=== PATIENT | male | born 1980 | race Caucasian/White ===

== ENCOUNTER 2018-07-06 20:01 | Inpatient (IN) | payer OTHER ==
[2018-07-06 20:16] VITALS: BMI 28.3
--- NOTE | 2018-07-06 21:01 | HP ---
COWS - Scale Resting Pulse: 1= [place] 81-100 Sweatin=Flushed/Facial Moisture (Increased facial moisture) Restless Observation: 3= Extraneous Movement Pupil Size: 2= Moderately Dilated (Pupils = 4 mm) Bone or Joint Aches: 0= None Runny Nose/ Eye Tearin= Nasal Congestion GI Upset > 30mins: 3= Vomiting/Diarrhea Tremor Observation: 2= Slight Tremor Visible Yawning Observation: 1= 1-2x During Session Anxiety or Irritability: 2=Irritable/Anxious Goose Flesh Skin: 0=Smooth Skin COWS Score: 17 CIWA Score - Admission Criteria [facility] Guidelines: Admission for Medically Managed Detox: Requires at least one of the followin. CIWA greater than 12 2. Seizures within the past 24 hours 3. Delirium tremens within the past 24 hours 4. Hallucinations within the past 24 hours 5. Acute intervention needed for co occurring medical disorder 6. Acute intervention needed for co occurring psychiatric disorder 7. Severe withdrawal that cannot be handled at a lower level of care (continued vomiting, continued diarrhea, abnormal vital signs) requiring intravenous medication and/or fluids 8. Admission ROS [facility] Chief Complaint: Having heroin withdrawal. Allergies/Adverse Reactions: Allergies Allergy/AdvReac Type Severity Reaction Status Date / Time Fish Containing Products Allergy Verified 07/06/18 20:10 History of Present Illness: First admission for this 37 yom w/ heroin use disorder, having withdrawal symptoms. Patient states is taking prescribed oxycodone for prescribed chronic back pain x 2 years. States wants to stop everything - including oxy. has attempted several times to stop on own but only able to maintain sobriety for 1 day. Heroin use began at age 28. Current use x 2 years. (nasal) Cocaine use began at age 14. Daily $40 (nasal) Alcohol use began at age 14. 2 - 22 oz beers two-three x/wk Prescribed oxycodone x 2 years Nicotine use since abge 14. Smokes 1PPD. Last prescribed Valium May 2018. [place] Xanax or Klonopin. Denies seizures, blackouts, overdoses. Has a Narcan kit at home. PMHx: Chronic LBP; denies other significant PMH MHHx; Anxiety. Denies thoughts of harming self or others. Patient Name: Jayme Sinha Date: 1980 Address: [address] [place] [address] [place] [address] Sex: Male Rx Written Rx Dispensed Drug Quantity Days Supply Prescriber Name 06/08/2018 06/10/2018 oxycodone hcl 30 mg tablet 120 30 Kelvin May Patient Name: Jayme Sinha Date: 1980 Address: [address] [place] [address] Sex: Male Rx Written Rx Dispensed Drug Quantity Days Supply Prescriber Name 05/10/2018 05/10/2018 oxycodone hcl 30 mg tablet 120 30 KarKelvin long 05/10/2018 05/10/2018 diazepam 2 mg tablet 60 30 KaretKelvin stephens 04/08/2018 04/12/2018 diazepam 2 mg tablet 60 30 Kelvin May 04/08/2018 04/12/2018 oxycodone hcl 30 mg tablet 120 30 KaretKelvin stephens 04/08/2018 04/09/2018 oxycodone hcl 30 mg tablet 20 5 Kelvin May 03/11/2018 03/11/2018 diazepam 2 mg tablet 60 30 KarKelvin long 03/11/2018 03/11/2018 oxycodone hcl 30 mg tablet 120 30 KaretKelvin stephens 02/11/2018 02/12/2018 oxycodone hcl 30 mg tablet 120 30 KarKelvin long 02/11/2018 02/12/2018 diazepam 5 mg tablet 30 15 Kelvin May 01/14/2018 01/14/2018 oxycodone hcl 30 mg tablet 120 30 Kelvin May 01/14/2018 01/14/2018 diazepam 5 mg tablet 30 30 Kelvin May 12/17/2017 12/18/2017 oxycodone hcl 30 mg tablet 120 30 KarKelvin long 11/18/2017 11/18/2017 oxycodone hcl 30 mg tablet 120 30 Kelvin May 10/20/2017 10/20/2017 diazepam 5 mg tablet 30 30 Kelvin May 10/20/2017 10/20/2017 oxycodone hcl 30 mg tablet 120 30 KarKelvin long 09/21/2017 09/21/2017 oxycodone hcl 30 mg tablet 120 30 Mario Rodriguez MD 09/21/2017 09/21/2017 diazepam 5 mg tablet 45 30 Mario Rodriguez MD 08/24/2017 08/24/2017 oxycodone hcl 30 mg tablet 120 30 Lalo Kelvin D 08/24/2017 08/24/2017 diazepam 5 mg tablet 45 30 Kelvin May D 07/27/2017 07/27/2017 oxycodone hcl 30 mg tablet 120 30 Marcusetangelo, Kelvin D 07/27/2017 07/27/2017 diazepam 5 mg tablet 45 30 Marcusetangelo, Kelvin D Search Terms: Jayme Sinha, 1980 Search Date: 07/06/2018 08:59:09 PM States Searched: [place], [place], [place], [place], [place], [place], [place] The Drug Utilization Report below displays the controlled substance prescriptions, if any, that were dispensed in the indicated state(s). The information displayed on this report is compiled from requests submitted to other states' PMPs, and accurately reflects the information as returned by them. Blank geiger indicate data not provided by other state. This report was requested by: Mabel Butler | Reference #: [id number] Exam Limitations: No Limitations - Ebola screening Have you traveled outside of the country in the last 21 days: No (N) Have you had contact with anyone from an Ebola affected area: No Have you been sick,other than usual withdrawal symptoms: No (Denies recent measles exposure) Do you have a fever: No - Review of Systems Constitutional: Chills, Diaphoresis EENT: reports: Nose Congestion, Dental Problems (Tooth pain.) Respiratory: reports: SOB with Exertion (Walking) Cardiac: reports: No Symptoms Reported GI: reports: Diarrhea (watery, greenish-brown x 2 hours.), Nausea, Vomiting : reports: No Symptoms Reported Musculoskeletal: reports: Back Pain (Chronic intermittent sharp back pain - "8.5 " Increases w/ twisting. Improves w/ rest) Integumentary: reports: No Symptoms Reported Neuro: reports: Numbness (In lower back, (L) arm, and (L) leg), Tremors Endocrine: reports: Increased Thirst Hematology: reports: No Symptoms Reported Psychiatric: reports: Judgement Intact, Orientated x3, Agitated, Anxious Patient History - PPD History Previous Implant?: No Documented Results: Negative w/o proof Implanted On Prior [facility] Admission?: No PPD to be Administered?: Yes - Smoking Cessation Smoking history: Current every day smoker Have you smoked in the past 12 months: Yes Aproximately how many cigarettes per day: 20 Hx Chewing Tobacco Use: No Initiated information on smoking cessation: Yes 'Breaking Loose' booklet given: 07/06/18 - Substance & Tx. History Hx Alcohol Use: Yes Hx Substance Use: Yes Substance Use Type: Alcohol, Cocaine, Heroin, Prescribed (Oxycodone) Hx Substance Use Treatment: No - Substances abused Heroin Substance route: Inhalation Frequency: Daily Amount used: 10bags/day Age of first use: 28 Date of last use: 07/06/18 Admission Physical Exam [facility] - Physical General Appearance: Yes: Moderate Distress, Tremorous, Irritable, Sweating ( Increased facial moisture), Anxious HEENTM: Yes: EOMI, Hearing grossly Normal, Normocephalic, Normal Voice, CEASAR ( Pupils = 4 mm), Pharynx Normal Respiratory: Yes: Lungs Clear, Normal Breath Sounds, No Respiratory Distress Neck: Yes: No masses,lesions,Nodules, Supple Breast: Yes: Breast Exam Deferred Cardiology: Yes: Regular Rhythm, S1, S2, Bradycardia Abdominal: Yes: Non Tender, Soft, Increased Bowel Sounds Genitourinary: Yes: Within Normal Limits Back: Yes: Normal Inspection Musculoskeletal: Yes: full range of Motion, Gait Steady Extremities: Yes: Normal Capillary Refill, Normal Inspection, Normal Range of Motion, Non-Tender, Tremors (Slight tremors visible) Neurological: Yes: energy management specialist II-XII NML intact, Fully Oriented, Alert, Motor Strength 5/5, Normal Mood/Affect Integumentary: Yes: Normal Color, Warm, Diaphoresis (Increased facial moisture) Lymphatic: Yes: Within Normal Limits - Diagnostic (1) Opioid dependence with withdrawal Current Visit: Yes Status: Acute (2) Cocaine dependence, uncomplicated Current Visit: Yes Status: Chronic (3) Nicotine dependence, uncomplicated Current Visit: Yes Status: Chronic Qualifiers: Nicotine product type: cigarettes Qualified Code(s): F17.210 - Nicotine dependence, cigarettes, uncomplicated (4) History of low back pain Current Visit: Yes Status: Chronic (5) Abnormal finding on EKG Current Visit: Yes Status: Suspected Comment: No prior EKG for comparison. Cleared for Admission [facility] - Detox or Rehab [facility] Level of Care: Medically Managed Detox Regimen/Protocol: Methadone Claeared for Rehab Admission: No Breathalyzer - Breathalyzer Breathalyzer: 0 Inpatient Rehab Admission - Rehab Decision to Admit Inpatient rehab admission?: No
[2018-07-06] MEDS ORDERED: MAG HYDROX/AL HYDROX/SIMETH 30 ML UNIT-DOSE CUP PO PRN (21:27)
[2018-07-06] MEDS ORDERED: PROCHLORPERAZINE MALEATE 5 MG TABLET PO PRN (21:27)
[2018-07-06] MEDS ORDERED: MAGNESIUM HYDROX 2400MG/30ML ORAL SUSPENSION 30 ML CUP PO PRN (21:27)
[2018-07-06] MEDS ORDERED: MENTHOL/PHENOL 1 EACH UD MM PRN (21:27)
[2018-07-06] MEDS ORDERED: IBUPROFEN 400 MG TABLET (FP) PO PRN (21:27)
[2018-07-06] MEDS ORDERED: METHADONE HCL 10 MG TABLET (FOR DETOX USE ONLY) PO ONE ×2 (21:27→23:00)
[2018-07-06] MEDS ORDERED: NICOTINE POLACRILEX 2 MG GUM BUC PRN (21:27)
[2018-07-06] MEDS ORDERED: MAGNESIUM CITRATE 300 ML BOTTLE PO PRN (21:27)
[2018-07-06] MEDS ORDERED: ACETAMINOPHEN 325 MG TABLET (FP) PO PRN ×2 (21:27)
[2018-07-06] MEDS: THIAMINE HCL 100 MG TABLET (FP) PO SCH (22:35)
[2018-07-06] MEDS: MELATONIN 5 MG TABLETS PO PRN (22:38)
[2018-07-06] MEDS: METHOCARBAMOL 500 MG TABLET PO PRN (22:38)
[2018-07-06 23:57] LABS: PH,URINE 5.5 (5.0-8.0); URINE APPEARANCE TURBID; URINE BILIRUBIN NEGATIVE (NEGATIVE); URINE COLOR YELLOW; URINE GLUCOSE (UA) NEGATIVE (NEGATIVE); URINE KETONE NEGATIVE (NEGATIVE); URINE LEUK ESTERASE NEGATIVE (NEGATIVE); URINE NITRITE NEGATIVE (NEGATIVE); URINE PROTEIN NEGATIVE (NEGATIVE); URINE UROBILINOGEN 0.2 mg/dL (0.2-1.0)
[2018-07-07] MEDS: PRENATAL VITAMINS W/ FOLIC ACID TABLET (FP) PO SCH (09:55)
[2018-07-07] MEDS: METHOCARBAMOL 500 MG TABLET PO PRN ×2 (09:56→23:01)
[2018-07-07] MEDS: NICOTINE 21 MG/24 HOURS TOPICAL PATCH TD SCH (09:57)
[2018-07-07] MEDS ORDERED: METHADONE HCL 10 MG TABLET (FOR DETOX USE ONLY) PO ONE (10:00)
[2018-07-07 10:13] LABS: ALBUMIN 3.6 g/dl (3.4-5.0); BILIRUBIN,TOTAL 0.5 mg/dL (0.2-1); CREATININE 0.8 mg/dL (0.55-1.3); POTASSIUM 4.5 mmol/L (3.5-5.1); TOT PROT 6.9 g/dl (6.4-8.2)
--- NOTE | 2018-07-07 10:18 | PN ---
S COWS - Scale Resting Pulse: 0= [place] 80 or Below Sweatin= Chills/Flushing Restless Observation: 1= Difficult to Sit Still Pupil Size: 0= Normal to Room Light Bone or Joint Aches: 2= Severe Diffuse Aches Runny Nose/ Eye Tearin= Nasal Congestion GI Upset > 30mins: 1= Stomach Cramp Tremor Observation of Outstretched Hands: 2= Slight Tremor Visible Yawning Observation: 1= 1-2x During Session Anxiety or Irritability: 2=Irritable/Anxious Goose Flesh Skin: 3=Piloerection COWS Score: 14 BHS Progress Note (SOAP) Subjective: body aches indigestion abdominal cramping Objective: 07/07/18 10:17 Vital Signs Temperature 97.1 F L 07/07/18 09:13 Pulse Rate 64 07/07/18 09:13 Respiratory Rate 18 07/07/18 09:13 Blood Pressure 112/74 07/07/18 09:13 O2 Sat by Pulse Oximetry (%) Laboratory Last Values Sodium 140 mmol/L (136-145) 07/07/18 07:30 Potassium 4.5 mmol/L (3.5-5.1) 07/07/18 07:30 Chloride 106 mmol/L (98-107) 07/07/18 07:30 Carbon Dioxide 32 mmol/L (21-32) 07/07/18 07:30 Anion Gap 3 MMOL/L (8-16) L 07/07/18 07:30 BUN 12 mg/dL (7-18) 07/07/18 07:30 Creatinine 0.8 mg/dL (0.55-1.3) 07/07/18 07:30 Est GFR (CKD-EPI)AfAm 132.27 07/07/18 07:30 Est GFR (CKD-EPI)NonAf 114.12 07/07/18 07:30 Random Glucose 98 mg/dL (74-106) 07/07/18 07:30 Calcium 9.0 mg/dL (8.5-10.1) 07/07/18 07:30 Total Bilirubin 0.5 mg/dL (0.2-1) 07/07/18 07:30 AST 15 U/L (15-37) 07/07/18 07:30 ALT 18 U/L (13-61) 07/07/18 07:30 Alkaline Phosphatase 70 U/L (45-117) 07/07/18 07:30 Total Protein 6.9 g/dl (6.4-8.2) 07/07/18 07:30 Albumin 3.6 g/dl (3.4-5.0) 07/07/18 07:30 Urine Color Yellow 07/06/18 22:09 Urine Appearance Turbid 07/06/18 22:09 Urine pH 5.5 (5.0-8.0) 07/06/18 22:09 Ur Specific [place] 1.027 (1.010-1.035) 07/06/18 22:09 Urine Protein Negative (NEGATIVE) 07/06/18 22:09 Urine Glucose (UA) Negative (NEGATIVE) 07/06/18 22:09 Urine Ketones Negative (NEGATIVE) 07/06/18 22:09 Urine Blood Negative (NEGATIVE) 07/06/18 22:09 Urine Nitrite Negative (NEGATIVE) 07/06/18 22:09 Urine Bilirubin Negative (NEGATIVE) 07/06/18 22:09 Urine Urobilinogen 0.2 mg/dL (0.2-1.0) 07/06/18 22:09 Ur Leukocyte Esterase Negative (NEGATIVE) 07/06/18 22:09 lab noted Assessment: 07/07/18 10:17 withdrawal sx Plan: continue detox
[2018-07-07 10:27] LABS: HEMATOCRIT 40.4 % (35.4-49); HEMOGLOBIN 13.8 GM/dL (11.7-16.9); MCH 30.3 pg (25.7-33.7); MCHC 34.1 g/dl (32.0-35.9); MEAN CELL VOLUME 88.8 fl (80-96); MEAN PLT VOLUME 7.1 fl (7.5-11.1); PLATELET COUNT 261 K/MM3 (134-434); RBC 4.55 M/mm3 (4.00-5.60); RDW 13.6 % (11.9-15.9); WHITE BLOOD COUNT 7.1 K/mm3 (4.0-10.0)
[2018-07-07] MEDS ORDERED: DICYCLOMINE HCL 10 MG CAPSULE PO ONE (10:50)
[2018-07-07] MEDS: RANITIDINE HCL 150 MG TABLET (FP) PO SCH ×2 (11:02→23:01)
--- NOTE | 2018-07-07 12:56 | EKG ---
Test Reason : Blood Pressure : / mmHG Vent. Rate : 058 BPM Atrial Rate : 058 BPM P-R Int : 168 ms QRS Dur : 112 ms QT Int : 400 ms P-R-T Axes : 027 049 037 degrees QTc Int : 392 ms SINUS BRADYCARDIA WITH SINUS ARRHYTHMIA OTHERWISE NORMAL ECG NO PREVIOUS ECGS AVAILABLE Confirmed by ABRAHAM CHATTERJEE MD ([id number]) on 07/07/2018 12:56:13 PM Referred By: Confirmed By:ABRAHAM CHATTERJEE MD
[2018-07-07] MEDS: cloNIDine HCL 0.1 MG TABLET PO PRN (17:13)
[2018-07-07] MEDS: THIAMINE HCL 100 MG TABLET (FP) PO SCH (23:01)
[2018-07-07] MEDS: MELATONIN 5 MG TABLETS PO PRN (23:01)
[2018-07-08] MEDS: cloNIDine HCL 0.1 MG TABLET PO PRN (07:36)
[2018-07-08] MEDS ORDERED: METHADONE HCL 5 MG TABLET (FOR DETOX USE ONLY) PO ONE (10:00)
[2018-07-08] MEDS: NICOTINE 21 MG/24 HOURS TOPICAL PATCH TD SCH (10:08)
[2018-07-08] MEDS: PRENATAL VITAMINS W/ FOLIC ACID TABLET (FP) PO SCH (10:08)
[2018-07-08] MEDS: RANITIDINE HCL 150 MG TABLET (FP) PO SCH ×2 (10:08→22:17)
--- NOTE | 2018-07-08 10:47 | PN ---
BHS COWS - Scale Resting Pulse: 0= [place] 80 or Below Sweatin= Chills/Flushing Restless Observation: 3= Extraneous Movement Pupil Size: 1= Pupils >than Normal Bone or Joint Aches: 2= Severe Diffuse Aches Runny Nose/ Eye Tearin= Nasal Congestion GI Upset > 30mins: 2= Nausea/Diarrhea Tremor Observation of Outstretched Hands: 2= Slight Tremor Visible Yawning Observation: 1= 1-2x During Session Anxiety or Irritability: 2=Irritable/Anxious Goose Flesh Skin: 0=Smooth Skin COWS Score: 15 BHS Progress Note (SOAP) Subjective: alert,irritable,anxious,interrupted sleep,pain in the body and back Objective: 07/08/18 10:45 Vital Signs Temperature 97.5 F L 07/08/18 10:25 Pulse Rate 69 07/08/18 10:25 Respiratory Rate 16 07/08/18 10:25 Blood Pressure 117/64 07/08/18 10:25 O2 Sat by Pulse Oximetry (%) 07/08/18 10:46 Laboratory Last Values WBC 7.1 K/mm3 (4.0-10.0) 07/07/18 07:30 RBC 4.55 M/mm3 (4.00-5.60) 07/07/18 07:30 Hgb 13.8 GM/dL (11.7-16.9) 07/07/18 07:30 Hct 40.4 % (35.4-49) 07/07/18 07:30 MCV 88.8 fl (80-96) 07/07/18 07:30 MCH 30.3 pg (25.7-33.7) 07/07/18 07:30 MCHC 34.1 g/dl (32.0-35.9) 07/07/18 07:30 RDW 13.6 % (11.9-15.9) 07/07/18 07:30 Plt Count 261 K/MM3 (134-434) 07/07/18 07:30 MPV 7.1 fl (7.5-11.1) L 07/07/18 07:30 Sodium 140 mmol/L (136-145) 07/07/18 07:30 Potassium 4.5 mmol/L (3.5-5.1) 07/07/18 07:30 Chloride 106 mmol/L (98-107) 07/07/18 07:30 Carbon Dioxide 32 mmol/L (21-32) 07/07/18 07:30 Anion Gap 3 MMOL/L (8-16) L 07/07/18 07:30 BUN 12 mg/dL (7-18) 07/07/18 07:30 Creatinine 0.8 mg/dL (0.55-1.3) 07/07/18 07:30 Est GFR (CKD-EPI)AfAm 132.27 07/07/18 07:30 Est GFR (CKD-EPI)NonAf 114.12 07/07/18 07:30 Random Glucose 98 mg/dL (74-106) 07/07/18 07:30 Calcium 9.0 mg/dL (8.5-10.1) 07/07/18 07:30 Total Bilirubin 0.5 mg/dL (0.2-1) 07/07/18 07:30 AST 15 U/L (15-37) 07/07/18 07:30 ALT 18 U/L (13-61) 07/07/18 07:30 Alkaline Phosphatase 70 U/L (45-117) 07/07/18 07:30 Total Protein 6.9 g/dl (6.4-8.2) 07/07/18 07:30 Albumin 3.6 g/dl (3.4-5.0) 07/07/18 07:30 Urine Color Yellow 07/06/18 22:09 Urine Appearance Turbid 07/06/18 22:09 Urine pH 5.5 (5.0-8.0) 07/06/18 22:09 Ur Specific [place] 1.027 (1.010-1.035) 07/06/18 22:09 Urine Protein Negative (NEGATIVE) 07/06/18 22:09 Urine Glucose (UA) Negative (NEGATIVE) 07/06/18 22:09 Urine Ketones Negative (NEGATIVE) 07/06/18 22:09 Urine Blood Negative (NEGATIVE) 07/06/18 22:09 Urine Nitrite Negative (NEGATIVE) 07/06/18 22:09 Urine Bilirubin Negative (NEGATIVE) 07/06/18 22:09 Urine Urobilinogen 0.2 mg/dL (0.2-1.0) 07/06/18 22:09 Ur Leukocyte Esterase Negative (NEGATIVE) 07/06/18 22:09 RPR Titer Nonreactive (NONREACTIVE) 07/07/18 07:30 HIV 1&2 Antibody Screen Negative 07/07/18 07:30 HIV P24 Antigen Negative 07/07/18 07:30 Assessment: 07/08/18 10:46 withdrawal symptom Plan: continue detox
[2018-07-08] MEDS: diazePAM 5 MG TABLET PO PRN ×3 (13:16→22:18)
[2018-07-08] MEDS: BISMUTH SUBSALICYLATE 524 MG/30 ML UD PO PRN (21:09)
[2018-07-08] MEDS: METHOCARBAMOL 500 MG TABLET PO PRN (22:18)
[2018-07-08] MEDS: MELATONIN 5 MG TABLETS PO PRN (22:19)
[2018-07-08] MEDS: THIAMINE HCL 100 MG TABLET (FP) PO SCH (22:19)
[2018-07-09] MEDS: diazePAM 5 MG TABLET PO PRN ×4 (05:58→19:41)
[2018-07-09] MEDS: NICOTINE 21 MG/24 HOURS TOPICAL PATCH TD SCH (09:30)
[2018-07-09] MEDS: RANITIDINE HCL 150 MG TABLET (FP) PO SCH ×2 (09:30→22:44)
[2018-07-09] MEDS: PRENATAL VITAMINS W/ FOLIC ACID TABLET (FP) PO SCH (09:30)
[2018-07-09] MEDS: BISMUTH SUBSALICYLATE 524 MG/30 ML UD PO PRN (09:34)
[2018-07-09] MEDS: METHOCARBAMOL 500 MG TABLET PO PRN (09:59)
[2018-07-09] MEDS ORDERED: METHADONE HCL 10 MG TABLET (FOR DETOX USE ONLY) PO ONE (10:00)
--- NOTE | 2018-07-09 11:46 | PN ---
S COWS - Scale Resting Pulse: 0= [place] 80 or Below Sweatin= Beads of Sweat on Face Restless Observation: 1= Difficult to Sit Still Pupil Size: 0= Normal to Room Light Bone or Joint Aches: 2= Severe Diffuse Aches Runny Nose/ Eye Tearin= None GI Upset > 30mins: 0= None Tremor Observation of Outstretched Hands: 2= Slight Tremor Visible Yawning Observation: 1= 1-2x During Session Anxiety or Irritability: 2=Irritable/Anxious Goose Flesh Skin: 0=Smooth Skin COWS Score: 11 S Progress Note (SOAP) Subjective: c/o anxiety/irritability, mild tremor, and interrupted sleep. Objective: 07/09/18 11:45 Vital Signs 07/09/18 07/09/18 06:00 09:06 Temperature 97.7 F 97.9 F Pulse Rate 68 72 Respiratory 20 18 Rate Blood Pressure 129/82 138/79 Laboratory Last Values WBC 7.1 K/mm3 (4.0-10.0) 07/07/18 07:30 RBC 4.55 M/mm3 (4.00-5.60) 07/07/18 07:30 Hgb 13.8 GM/dL (11.7-16.9) 07/07/18 07:30 Hct 40.4 % (35.4-49) 07/07/18 07:30 MCV 88.8 fl (80-96) 07/07/18 07:30 MCH 30.3 pg (25.7-33.7) 07/07/18 07:30 MCHC 34.1 g/dl (32.0-35.9) 07/07/18 07:30 RDW 13.6 % (11.9-15.9) 07/07/18 07:30 Plt Count 261 K/MM3 (134-434) 07/07/18 07:30 MPV 7.1 fl (7.5-11.1) L 07/07/18 07:30 Sodium 140 mmol/L (136-145) 07/07/18 07:30 Potassium 4.5 mmol/L (3.5-5.1) 07/07/18 07:30 Chloride 106 mmol/L (98-107) 07/07/18 07:30 Carbon Dioxide 32 mmol/L (21-32) 07/07/18 07:30 Anion Gap 3 MMOL/L (8-16) L 07/07/18 07:30 BUN 12 mg/dL (7-18) 07/07/18 07:30 Creatinine 0.8 mg/dL (0.55-1.3) 07/07/18 07:30 Est GFR (CKD-EPI)AfAm 132.27 07/07/18 07:30 Est GFR (CKD-EPI)NonAf 114.12 07/07/18 07:30 Random Glucose 98 mg/dL (74-106) 07/07/18 07:30 Calcium 9.0 mg/dL (8.5-10.1) 07/07/18 07:30 Total Bilirubin 0.5 mg/dL (0.2-1) 07/07/18 07:30 AST 15 U/L (15-37) 07/07/18 07:30 ALT 18 U/L (13-61) 07/07/18 07:30 Alkaline Phosphatase 70 U/L (45-117) 07/07/18 07:30 Total Protein 6.9 g/dl (6.4-8.2) 07/07/18 07:30 Albumin 3.6 g/dl (3.4-5.0) 07/07/18 07:30 Urine Color Yellow 07/06/18 22:09 Urine Appearance Turbid 07/06/18 22:09 Urine pH 5.5 (5.0-8.0) 07/06/18 22:09 Ur Specific [place] 1.027 (1.010-1.035) 07/06/18 22:09 Urine Protein Negative (NEGATIVE) 07/06/18 22:09 Urine Glucose (UA) Negative (NEGATIVE) 07/06/18 22:09 Urine Ketones Negative (NEGATIVE) 07/06/18 22:09 Urine Blood Negative (NEGATIVE) 07/06/18 22:09 Urine Nitrite Negative (NEGATIVE) 07/06/18 22:09 Urine Bilirubin Negative (NEGATIVE) 07/06/18 22:09 Urine Urobilinogen 0.2 mg/dL (0.2-1.0) 07/06/18 22:09 Ur Leukocyte Esterase Negative (NEGATIVE) 07/06/18 22:09 RPR Titer Nonreactive (NONREACTIVE) 07/07/18 07:30 HIV 1&2 Antibody Screen Negative 07/07/18 07:30 HIV P24 Antigen Negative 07/07/18 07:30 Labs noted. Assessment: 07/09/18 11:45 AOX3, in no acute distress. full rom, ambulating in the unit withdrawal symptoms. Plan: Continue detox. Increase fluids.
[2018-07-09] MEDS: THIAMINE HCL 100 MG TABLET (FP) PO SCH (22:44)
[2018-07-10] MEDS: diazePAM 5 MG TABLET PO PRN ×2 (01:56→06:00)
[2018-07-10] MEDS: BISMUTH SUBSALICYLATE 524 MG/30 ML UD PO PRN (06:00)
[2018-07-10 06:23] VITALS: TEMP 97.5
[2018-07-10] MEDS ORDERED: METHADONE HCL 5 MG TABLET (FOR DETOX USE ONLY) ONE (08:59)
[2018-07-10] MEDS ORDERED: METHADONE HCL 10 MG TABLET (FOR DETOX USE ONLY) ONE (08:59)
[2018-07-10] MEDS: NICOTINE 21 MG/24 HOURS TOPICAL PATCH TD SCH (09:29)
[2018-07-10] MEDS: PRENATAL VITAMINS W/ FOLIC ACID TABLET (FP) PO SCH (09:30)
[2018-07-10] MEDS: RANITIDINE HCL 150 MG TABLET (FP) PO SCH (09:30)
[2018-07-10] MEDS ORDERED: METHADONE (DETOX) 10 MG, METHADONE (DETOX) 5 MG PO ONE (10:00)
[2018-07-10 10:37] VITALS: BP 130/81; PULSE 88
--- NOTE | 2018-07-10 14:34 | DS ---
[facility] Detox Discharge Summary Admission Date: 07/06/18 Discharge Date: 07/10/18 - History Present History: Cocaine Dependence, Opioid Dependence Additional Comments: Patient demanded to leave AMA despite encouragement from staff to complete detox. Patient stated he is feeling fine and needs to leave. Patient instructed to call 911 [place] if feeling sick or withdrawal symptoms and to see his PCP within 1-3 days. Pertinent Past History: Cocaine dependence Opioid dependence Chronic back pain Nicotine dependence - Physical Exam Results Vital Signs: Vital Signs Temperature 97.5 F L 07/10/18 06:00 Pulse Rate 88 07/10/18 10:36 Respiratory Rate 18 07/10/18 10:36 Blood Pressure 130/81 07/10/18 10:36 O2 Sat by Pulse Oximetry (%) Pertinent Admission Physical Exam Findings: Withdrawal symptoms Laboratory Tests 07/06/18 07/07/18 07/07/18 22:09 07:30 07:30 WBC 7.1 RBC 4.55 Hgb 13.8 Hct 40.4 MCV 88.8 MCH 30.3 MCHC 34.1 RDW 13.6 Plt Count 261 MPV 7.1 L Sodium 140 Potassium 4.5 Chloride 106 Carbon Dioxide 32 Anion Gap 3 L BUN 12 Creatinine 0.8 Est GFR (CKD-EPI)AfAm 132.27 Est GFR (CKD-EPI)NonAf 114.12 Random Glucose 98 Calcium 9.0 Total Bilirubin 0.5 AST 15 ALT 18 Alkaline Phosphatase 70 Total Protein 6.9 Albumin 3.6 Urine Color Yellow Urine Appearance Turbid Urine pH 5.5 Ur Specific [place] 1.027 Urine Protein Negative Urine Glucose (UA) Negative Urine Ketones Negative Urine Blood Negative Urine Nitrite Negative Urine Bilirubin Negative Urine Urobilinogen 0.2 Ur Leukocyte Esterase Negative RPR Titer HIV 1&2 Antibody Screen HIV P24 Antigen 07/07/18 07/07/18 07:30 07:30 WBC RBC Hgb Hct MCV MCH MCHC RDW Plt Count MPV Sodium Potassium Chloride Carbon Dioxide Anion Gap BUN Creatinine Est GFR (CKD-EPI)AfAm Est GFR (CKD-EPI)NonAf Random Glucose Calcium Total Bilirubin AST ALT Alkaline Phosphatase Total Protein Albumin Urine Color Urine Appearance Urine pH Ur Specific [place] Urine Protein Urine Glucose (UA) Urine Ketones Urine Blood Urine Nitrite Urine Bilirubin Urine Urobilinogen Ur Leukocyte Esterase RPR Titer Nonreactive HIV 1&2 Antibody Screen Negative HIV P24 Antigen Negative Labs reviewed - Medication Discharge Medications: Ambulatory Orders NK [No Known Home Medication] 07/06/18 - Diagnosis (1) Opioid dependence with withdrawal Status: Acute (2) Cocaine dependence, uncomplicated Status: Chronic (3) History of low back pain Status: Chronic (4) Nicotine dependence, uncomplicated Status: Chronic Qualifiers: Nicotine product type: cigarettes Qualified Code(s): F17.210 - Nicotine dependence, cigarettes, uncomplicated - AMA Did Patient Leave Against Medical Advice: Yes (Patient instructed to call 911 [place] if feeling sick or withdrawal symptoms)
[2018-07-11] MEDS ORDERED: METHADONE HCL 10 MG TABLET (FOR DETOX USE ONLY) PO ONE (10:00)
[2018-07-12] MEDS ORDERED: METHADONE HCL 5 MG TABLET (FOR DETOX USE ONLY) PO ONE (06:00)
== END 2018-07-10 10:00 | disposition left against medical advice (07) | DRG 770 ==
LOC: YASAS 20:01 → Y3N 21:38 → Y6N 07-07 13:27
PROVIDERS: ADMIT Surgery; ATTEND Surgery
PROC: HZ2ZZZZ Detoxification Services for Substance Abuse Treatment (ICD-10-PCS; principal; 2018-07-06)
DX: F11.23 Opioid dependence with withdrawal (principal); F10.230 Alcohol dependence with withdrawal, uncomplicated; F14.20 Cocaine dependence, uncomplicated; F17.210 Nicotine dependence, cigarettes, uncomplicated; F41.9 Anxiety disorder, unspecified; M54.5 Low back pain; G89.29 Other chronic pain; R94.31 Abnormal electrocardiogram [ECG] [EKG]; Z91.013 Allergy to seafood
CPT/HCPCS: 36415; 80053; 81003; 85027; 86593; 87389; 93005; 93010; J0735